=== PATIENT | female | born 1980 | race Asian ===

== ENCOUNTER 2017-10-14 18:05 | Emergency (ER) | payer MEDICAID ==
[~2017-10-14] VITALS: Ht 162.6 cm; Wt 149.7 kg
[2017-10-14] MEDS ORDERED: IV NORMAL SALINE 1000ML BAG 1,000 ML IV SCH (19:48)
[2017-10-14] MEDS ORDERED: ASPIRIN CHEWABLE 81 MG TABLET. PO ONE (20:00)
[2017-10-14] MEDS ORDERED: 0.9 % SODIUM CHLORIDE 10 ML DISP.SYRIN. IV PRN (20:00)
[2017-10-14 20:03] LABS: BASO # 0.1 x10^3/uL (0.0-0.2); BASO % 1 % (0-3); EOS % 6 % (0-3); HEMATOCRIT 36.6 % (36.0-47.0); HEMOGLOBIN 11.4 g/dL (12.0-15.5); LYMPH # 2.1 x10^3/uL (1.0-4.8); LYMPH % 35 % (24-48); MEAN CORPUSCULAR HEMOGLOBIN 24 pg (25-35); MEAN CORPUSCULAR HGB CONC 31 g/dL (31-37); MEAN CORPUSCULAR VOLUME 77 fL (79-100); MONO % 6 % (0-9); NEUT % 52 % (31-73); PLATELET COUNT 261 x10^3/uL (140-400); RED BLOOD COUNT 4.76 x10^6/uL (3.50-5.40); WHITE BLOOD COUNT 6.1 x10^3/uL (4.0-11.0)
[2017-10-14 20:05] LABS: BILIRUBIN,URINE NEGATIVE (NEG); GLUCOSE,URINE NEGATIVE (NEG); NITRITE,URINE NEGATIVE (NEG); PH,URINE 6.5; PROTEIN,URINE NEGATIVE (NEG-TRACE); UROBILINOGEN,URINE 0.2 mg/dL (0.2 mg/dL)
[2017-10-14 20:18] LABS: BACTERIA,URINE FEW /HPF (0-FEW); RBC,URINE OCC /HPF (0-2); SQUAMOUS EPITHELIAL CELL,UR MOD /LPF
[2017-10-14 20:23] LABS: ANION GAP 8 (6-14); BLOOD UREA NITROGEN 14 mg/dL (7-20); CALCIUM 9.1 mg/dL (8.5-10.1); CARBON DIOXIDE 29 mmol/L (21-32); CHLORIDE 103 mmol/L (98-107); GFR 62.7; GLUCOSE 111 mg/dL (70-99); POTASSIUM 3.8 mmol/L (3.5-5.1); SODIUM 140 mmol/L (136-145)
[2017-10-14 20:27] LABS: ALBUMIN 3.7 g/dL (3.4-5.0); ALK PHOS 61 U/L (46-116); ALT (SGPT) 24 U/L (14-59); AST (SGOT) 16 U/L (15-37); DIRECT BILIRUBIN < 0.1 mg/dL (0.0-0.2); MAGNESIUM 2.2 mg/dL (1.8-2.4); TOTAL BILIRUBIN 0.2 mg/dL (0.2-1.0); TOTAL PROTEIN 7.9 g/dL (6.4-8.2)
--- NOTE | 2017-10-14 20:34 | PHYS DOC ---
Past Medical History Past Medical History: Hypertension, Other Additional Past Medical Histor: PRECLAMPSIA 2016 Past Surgical History: Alcohol Use: None Drug Use: None Adult General Chief Complaint Chief Complaint: CHEST PAIN HPI HPI Is a pleasant 37-year-old female with a history of hypertension and prior preeclampsia with a prior one year ago who presents with hypertensive urgency. Patient noted a slight frontal headache today between her eyes without change in vision, it was not worse of life, not sudden onset. He also notes no specific focal neurologic deficit with this headache. She measured her blood pressure and she noted it was 190/120. She has a history of hypertension but is worried she was having an episode of preeclampsia. This patient is not . She denies any nausea, vomiting, bloody urine, chest pain, shortness of breath, change in vision, change in speech patterns or memory issues. Patient is a slight frontal headache that is now resolved. It is not radiating to her neck or back. sHe has any fevers or URI symptoms. Review of Systems Review of Systems Constitutional: Denies fever or chills [] Eyes: Denies change in visual acuity, redness, or eye pain [] HENT: Denies nasal congestion or sore throat [] Respiratory: Denies cough or shortness of breath [] Cardiovascular: No additional information not addressed in HPI [] GI: Denies abdominal pain, nausea, vomiting, bloody stools or diarrhea [] : Denies dysuria or hematuria [] Musculoskeletal: Denies back pain or joint pain [] Integument: Denies rash or skin lesions [] Neurologic: Denies focal weakness or sensory changes, patient is complaining of a mild frontal headache or/and sudden onset denies any specific trauma. [] Endocrine: Denies polyuria or polydipsia [] All other systems were reviewed and found to be within normal limits, except as documented in this note. Current Medications Current Medications Current Medications Medications (Trade) Dose Ordered Sig/Miguel A Start Time Stop Time Status Last Admin Dose Admin Aspirin (Children'S Aspirin) 324 mg 1X ONCE 10/14/17 20:00 10/14/17 20:01 UNV Sodium Chloride (Normal Saline Flush) 10 ml QSHIFT PRN 10/14/17 20:00 UNV Physical Exam Physical Exam Other vital signs recorded on the chart patient and be hypertensive Constitutional: Well developed, well nourished, no acute distress, non-toxic appearance. [] HENT: Normocephalic, atraumatic, bilateral external ears normal, oropharynx moist, no oral exudates, nose normal. [] Eyes: PERRLA, EOMI, conjunctiva normal, no discharge. [] Neck: Normal range of motion, no tenderness, supple, no stridor. [] Cardiovascular:Heart rate regular rhythm, no murmur [] Lungs & Thorax: Bilateral breath sounds clear to auscultation [] Abdomen: Bowel sounds normal, soft, no tenderness, no masses, no pulsatile masses. [] Skin: Warm, dry, no erythema, no rash. [] Back: No tenderness, no CVA tenderness. [] Extremities: No tenderness, no cyanosis, no clubbing, ROM intact, no edema. [] Neurologic: Alert and oriented X 3, normal motor function, normal sensory function, no focal deficits noted. [] Psychologic: Affect normal, judgement normal, mood normal. [] Current Patient Data Vital Signs Vital Signs Date Time Temp Pulse Resp B/P (MAP) Pulse Ox O2 Delivery O2 Flow Rate FiO2 10/14/17 19:05 98.2 65 22 191/97 (128) 98 Room Air 98.2 Lab Values Laboratory Tests Test 10/14/17 19:02 10/14/17 19:16 10/14/17 19:22 Urine Color Yellow Urine Clarity Clear Urine pH 6.5 Urine Specific [place] 1.020 Urine Protein Negative mg/dL (NEG-TRACE) Urine Glucose (UA) Negative mg/dL (NEG) Urine Ketones (Stick) Negative mg/dL (NEG) Urine Blood Negative (NEG) Urine Nitrite Negative (NEG) Urine Bilirubin Negative (NEG) Urine Urobilinogen Dipstick 0.2 mg/dL (0.2 mg/dL) Urine Leukocyte Esterase Small (NEG) Urine RBC Occ /HPF (0-2) Urine WBC 5-10 /HPF (0-4) Urine Squamous Epithelial Cells Mod /LPF Urine Bacteria Few /HPF (0-FEW) Urine Hyaline Casts Few /HPF Urine Mucus Slight /LPF POC Urine HCG, Qualitative Hcg negative (Negative) White Blood Count 6.1 x10^3/uL (4.0-11.0) Red Blood Count 4.76 x10^6/uL (3.50-5.40) Hemoglobin 11.4 g/dL (12.0-15.5) L Hematocrit 36.6 % (36.0-47.0) Mean Corpuscular Volume 77 fL (79-100) L Mean Corpuscular Hemoglobin 24 pg (25-35) L Mean Corpuscular Hemoglobin Concent 31 g/dL (31-37) Red Cell Distribution Width 16.0 % (11.5-14.5) H Platelet Count 261 x10^3/uL (140-400) Neutrophils (%) (Auto) 52 % (31-73) Lymphocytes (%) (Auto) 35 % (24-48) Monocytes (%) (Auto) 6 % (0-9) Eosinophils (%) (Auto) 6 % (0-3) H Basophils (%) (Auto) 1 % (0-3) Neutrophils # (Auto) 3.2 x10^3uL (1.8-7.7) Lymphocytes # (Auto) 2.1 x10^3/uL (1.0-4.8) Monocytes # (Auto) 0.4 x10^3/uL (0.0-1.1) Eosinophils # (Auto) 0.4 x10^3/uL (0.0-0.7) Basophils # (Auto) 0.1 x10^3/uL (0.0-0.2) Sodium Level 140 mmol/L (136-145) Potassium Level 3.8 mmol/L (3.5-5.1) Chloride Level 103 mmol/L (98-107) Carbon Dioxide Level 29 mmol/L (21-32) Anion Gap 8 (6-14) Blood Urea Nitrogen 14 mg/dL (7-20) Creatinine 1.0 mg/dL (0.6-1.0) Estimated GFR (Cockcroft-Gault) 62.7 Glucose Level 111 mg/dL (70-99) H Calcium Level 9.1 mg/dL (8.5-10.1) Magnesium Level 2.2 mg/dL (1.8-2.4) Total Bilirubin 0.2 mg/dL (0.2-1.0) Direct Bilirubin < 0.1 mg/dL (0.0-0.2) Aspartate Amino Transferase (AST) 16 U/L (15-37) Alanine Aminotransferase (ALT) 24 U/L (14-59) Alkaline Phosphatase 61 U/L (46-116) Troponin I Quantitative < 0.017 ng/mL (0.000-0.055) Total Protein 7.9 g/dL (6.4-8.2) Albumin 3.7 g/dL (3.4-5.0) Lipase 118 U/L (73-393) Laboratory Tests 10/14/17 19:22 Laboratory Tests 10/14/17 19:22 EKG EKG []EKG read by me time is 7:12 PM total 2016 patient has a P-wave to be QRS there is a rate of 71, DE interval 168 which is normal, QRS width of 90, QTc is 448 which is normal. Patient is normal sinus rhythm patient is an old Q-wave in the inferior leads lead 3. Radiology/Procedures Radiology/Procedures [] Course & Med Decision Making Course & Med Decision Making Pertinent Labs and Imaging studies reviewed. (See chart for details) []She presents with a hypertensive urgency, she has negative CBC, negative CMP, there is no evidence of renal insufficiency, negative troponin, negative UA for signs of proteinuria or hematuria. Patient has no ischemic changes on her EKG, she has no chest pain, no headache, chest x-ray AP read by me timed 8:28 PM demonstrates no cardiac megaly, no evidence of pulmonary infiltrates, no evidence of pleural effusion. No pneumothorax. Patient is asymptomatic and we talked about the symptomatology of hypertension if necessary to treat her. She is oriented lisinopril and Hydrocort thiazide only and friends and we do not feel compelled to changes at this time given her blood pressure 190/120. Again she is asymptomatic she has no end of end organ damage. Patient will follow-up with her primary care physician when she returns home to [place]. Ansley Disclaimer Ansley Disclaimer This electronic medical record was generated, in whole or in part, using a voice recognition dictation system. Departure Departure Impression: Primary Impression: Hypertensive urgency Disposition: HOME, SELF-CARE Condition: IMPROVED Referrals: UNKNOWN PCP NAME (PCP) Patient Instructions: Hypertension Additional Instructions: discharge: I've spoken with the patient and/or caregivers. I've explained the patient's condition, diagnosis and treatment plan based on information available to me at this time. I've answered the patient's and/or caregivers questions and addressed any concerns. The patient and/or caregivers have a good understanding the patient's diagnosis, condition and treatment plan as can be expected at this point. Vital signs have been stabilized. The patient's condition is stable for discharge from the emergency department. The patient will pursue further outpatient evaluation with her primary care provider or other designated consulting physician as outlined in the discharge instructions. Patient and/or caregivers are agreeable to this plan of care and follow-up instructions have been explained in detail. The patient and/or caregivers have received these instructions in written format and expressed understanding of these discharge instructions. The patient and her caregivers are aware that if any significant change in condition or worsening of symptoms should prompt him to immediately return to this of the closest emergency department. If an emergent department is not readily available I would encourage him to call 911. ALON HUITRON MD Oct 14, 2017 20:34
[2017-10-14 20:39] LABS: CKMB MASS < 0.5 ng/mL (0.0-3.6); CREATINE KINASE 113 U/L (26-192)
[2017-10-14] MEDS ORDERED: hydroCHLOROthiazide 12.5 MG CAPSULE PO ONE (21:15)
[2017-10-14] MEDS ORDERED: LISINOPRIL 10 MG TABLET PO ONE (21:15)
[2017-10-14 21:42] VITALS: BP 163/88
--- NOTE | 2017-10-15 06:29 | EKG ---
[facility] [address] [place] [address] Test Date: 2017-10-14 Test Time: 19:12:27 Pat Name: KD CORDOBA Department: Room: Gender: F [employer] Printer: : [id number] Requested By: ALON HUITRON Order Number: [id number] Reading MD: Jese Nagel MD Measurements Intervals [place] Rate: 71 P: 32 IA: 168 QRS: 30 QRSD: 90 T: 52 QT: 412 QTc: 448 Interpretive Statements SINUS RHYTHM NON-SPECIFIC ST/T CHANGES Electronically Signed On 10-23-2017 17:26:23 COSTUME DESIGNER by Jese Nagel MD
--- NOTE | 2017-10-15 08:06 | RAD ---
Portable chest, 10/14/2017: History: Chest pain The heart size and pulmonary vascularity are normal. No pulmonary infiltrate is seen. There is no evidence of pleural fluid. IMPRESSION: No acute cardiopulmonary abnormality is detected.
== END 2017-10-14 21:47 | disposition home or self-care (01) ==
LOC: ER 18:05
DX: I16.0 Hypertensive urgency (principal); I10 Essential (primary) hypertension; Z79.82 Long term (current) use of aspirin
CPT/HCPCS: 36415; 71010; 80048; 80076; 81001; 81025; 82553; 83690; 83735; 83880; 84443; 84484; 85025; 87086; 93005; 96360; 99285; J7030